=== PATIENT | female | born 1975 | race Caucasian/White ===

== ENCOUNTER → 2019-10-28 12:52 | Outpatient (BNVA) | payer MEDICAID, SELFPAY | PROVIDERS: Family Provider Family Medicine; PCP Family Medicine; Visit Provider Psychiatry & Neurology Psychiatry | DX: F43.12 Post-traumatic stress disorder, chronic (principal); F10.20 Alcohol dependence, uncomplicated; F17.200 Nicotine dependence, unspecified, uncomplicated; F33.2 Major depressive disorder, recurrent severe without psychotic features; F41.1 Generalized anxiety disorder | CPT/HCPCS: 99214 ==

== ENCOUNTER → 2019-11-27 12:06 | Outpatient (BNVA) | payer MEDICAID, SELFPAY | PROVIDERS: Family Provider Family Medicine; PCP Family Medicine; Visit Provider Psychiatry & Neurology Psychiatry | DX: F11.99 Opioid use, unspecified with unspecified opioid-induced disorder (principal) | CPT/HCPCS: 80305; 99214 ==

== ENCOUNTER → 2019-11-28 09:45 | Outpatient (BNVA) | payer MEDICAID, SELFPAY | PROVIDERS: Family Provider Family Medicine; PCP Family Medicine; Visit Provider Psychiatry & Neurology Psychiatry | DX: F43.12 Post-traumatic stress disorder, chronic (principal); F10.20 Alcohol dependence, uncomplicated; F17.200 Nicotine dependence, unspecified, uncomplicated; D33.2 Benign neoplasm of brain, unspecified; F41.1 Generalized anxiety disorder | CPT/HCPCS: 99213 ==

== ENCOUNTER → 2019-12-03 11:39 | Outpatient (BNVA) | payer MEDICAID, SELFPAY | PROVIDERS: Family Provider Family Medicine; PCP Family Medicine; Visit Provider Psychiatry & Neurology Psychiatry | DX: F11.20 Opioid dependence, uncomplicated (principal) | CPT/HCPCS: 80305; 99213 ==

== ENCOUNTER → 2019-12-16 10:47 | Outpatient (BNVA) | payer MEDICAID, SELFPAY | PROVIDERS: Family Provider Family Medicine; PCP Family Medicine; Visit Provider Psychiatry & Neurology Psychiatry | DX: F11.20 Opioid dependence, uncomplicated (principal) | CPT/HCPCS: 80307; 99213 ==

== ENCOUNTER → 2020-01-24 07:41 | Outpatient (BNVA) | payer MEDICAID, SELFPAY | PROVIDERS: Family Provider Family Medicine; PCP Family Medicine; Visit Provider Psychiatry & Neurology Psychiatry | DX: F33.2 Major depressive disorder, recurrent severe without psychotic features (principal); F41.1 Generalized anxiety disorder; F43.12 Post-traumatic stress disorder, chronic; F17.200 Nicotine dependence, unspecified, uncomplicated; F10.21 Alcohol dependence, in remission; F11.20 Opioid dependence, uncomplicated | CPT/HCPCS: 99213 ==

== ENCOUNTER → 2020-02-21 07:47 | Outpatient (BNVA) | payer MEDICAID, SELFPAY | PROVIDERS: Family Provider Family Medicine; PCP Family Medicine; Visit Provider Psychiatry & Neurology Psychiatry | DX: F43.12 Post-traumatic stress disorder, chronic (principal); F41.1 Generalized anxiety disorder; F10.21 Alcohol dependence, in remission; F17.200 Nicotine dependence, unspecified, uncomplicated; F33.2 Major depressive disorder, recurrent severe without psychotic features; F11.20 Opioid dependence, uncomplicated | CPT/HCPCS: 99213 ==

== ENCOUNTER → 2020-04-08 07:52 | Outpatient (BNVA) | payer MEDICAID, SELFPAY | PROVIDERS: Family Provider Family Medicine; PCP Family Medicine; Visit Provider Psychiatry & Neurology Psychiatry | DX: F10.21 Alcohol dependence, in remission (principal); F33.2 Major depressive disorder, recurrent severe without psychotic features; F41.1 Generalized anxiety disorder; F43.12 Post-traumatic stress disorder, chronic; F11.20 Opioid dependence, uncomplicated; F17.200 Nicotine dependence, unspecified, uncomplicated | CPT/HCPCS: 99214 ==

== ENCOUNTER → 2020-05-25 08:21 | Outpatient (BNVA) | payer MEDICAID, SELFPAY | PROVIDERS: Family Provider Family Medicine; PCP Family Medicine; Visit Provider Psychiatry & Neurology Psychiatry | DX: F33.2 Major depressive disorder, recurrent severe without psychotic features (principal); F41.1 Generalized anxiety disorder; F43.12 Post-traumatic stress disorder, chronic; F17.200 Nicotine dependence, unspecified, uncomplicated; F10.21 Alcohol dependence, in remission; F11.20 Opioid dependence, uncomplicated | CPT/HCPCS: 99213 ==

== ENCOUNTER → 2020-07-03 07:56 | Outpatient (BNVA) | payer MEDICAID, SELFPAY | PROVIDERS: Family Provider Family Medicine; PCP Family Medicine; Visit Provider Psychiatry & Neurology Psychiatry | DX: F43.12 Post-traumatic stress disorder, chronic (principal); F41.1 Generalized anxiety disorder; F33.2 Major depressive disorder, recurrent severe without psychotic features; F10.21 Alcohol dependence, in remission; F17.200 Nicotine dependence, unspecified, uncomplicated; F11.20 Opioid dependence, uncomplicated | CPT/HCPCS: 99214 ==

== ENCOUNTER → 2020-07-06 15:46 | Outpatient (BNVA) | payer MEDICAID, SELFPAY | PROVIDERS: Family Provider Family Medicine; PCP Family Medicine; Visit Provider Psychiatry & Neurology Psychiatry | DX: F11.20 Opioid dependence, uncomplicated (principal) | CPT/HCPCS: 80306 ==

== ENCOUNTER → 2020-08-21 07:38 | Outpatient (BNVA) | payer MEDICAID, SELFPAY | PROVIDERS: Family Provider Family Medicine; PCP Family Medicine; Visit Provider Psychiatry & Neurology Psychiatry | DX: F41.1 Generalized anxiety disorder (principal); F33.2 Major depressive disorder, recurrent severe without psychotic features; F11.20 Opioid dependence, uncomplicated; F17.200 Nicotine dependence, unspecified, uncomplicated; F10.21 Alcohol dependence, in remission; F43.12 Post-traumatic stress disorder, chronic | CPT/HCPCS: 99213 ==

== ENCOUNTER → 2020-10-19 08:10 | Outpatient (BNVA) | payer MEDICAID, SELFPAY | PROVIDERS: Family Provider Family Medicine; PCP Family Medicine; Visit Provider Psychiatry & Neurology Psychiatry | DX: F33.2 Major depressive disorder, recurrent severe without psychotic features (principal); F41.1 Generalized anxiety disorder; F11.20 Opioid dependence, uncomplicated; F17.200 Nicotine dependence, unspecified, uncomplicated; F10.21 Alcohol dependence, in remission; F43.12 Post-traumatic stress disorder, chronic | CPT/HCPCS: 99213 ==

== ENCOUNTER → 2020-11-06 14:38 | Outpatient (BNVA) | payer MEDICAID, SELFPAY | PROVIDERS: Family Provider Family Medicine; PCP Family Medicine; Visit Provider Psychiatry & Neurology Psychiatry | DX: F11.20 Opioid dependence, uncomplicated (principal) | CPT/HCPCS: 80053; 80061; 80307; 83036; 84443; 85025 ==

== ENCOUNTER → 2021-01-01 07:50 | Outpatient (BNVA) | payer MEDICAID, SELFPAY | PROVIDERS: Family Provider Family Medicine; PCP Family Medicine; Visit Provider Psychiatry & Neurology Psychiatry | DX: F33.2 Major depressive disorder, recurrent severe without psychotic features (principal); F41.1 Generalized anxiety disorder; F43.12 Post-traumatic stress disorder, chronic; F10.21 Alcohol dependence, in remission; F17.200 Nicotine dependence, unspecified, uncomplicated; F11.20 Opioid dependence, uncomplicated | CPT/HCPCS: 99214 ==

== ENCOUNTER → 2021-05-04 09:22 | Outpatient (BNVA) | payer MEDICAID, SELFPAY | PROVIDERS: Family Provider Family Medicine; PCP Family Medicine; Visit Provider Psychiatry & Neurology Psychiatry | DX: F33.2 Major depressive disorder, recurrent severe without psychotic features (principal); F41.1 Generalized anxiety disorder; F43.12 Post-traumatic stress disorder, chronic; F17.200 Nicotine dependence, unspecified, uncomplicated; F10.21 Alcohol dependence, in remission; F11.20 Opioid dependence, uncomplicated | CPT/HCPCS: 99214 ==

== ENCOUNTER → 2021-06-24 12:32 | Outpatient (BNVA) | payer MEDICAID, SELFPAY | PROVIDERS: Family Provider Family Medicine; PCP Family Medicine; Visit Provider Nurse Practitioner Family | DX: Z20.822 Contact with and (suspected) exposure to COVID-19 (principal) | CPT/HCPCS: 87635 ==

== ENCOUNTER → 2021-07-28 09:50 | Outpatient (BNVA) | payer MEDICAID, SELFPAY | PROVIDERS: Family Provider Family Medicine; PCP Family Medicine; Visit Provider Psychiatry & Neurology Psychiatry | DX: F33.2 Major depressive disorder, recurrent severe without psychotic features (principal); F41.1 Generalized anxiety disorder; F43.12 Post-traumatic stress disorder, chronic; F17.210 Nicotine dependence, cigarettes, uncomplicated; F10.21 Alcohol dependence, in remission; F11.20 Opioid dependence, uncomplicated | CPT/HCPCS: 99214 ==

== ENCOUNTER → 2021-11-18 12:47 | Outpatient (BNVA) | payer MEDICAID, SELFPAY | PROVIDERS: Family Provider Family Medicine; PCP Family Medicine; Visit Provider Psychiatry & Neurology Psychiatry | DX: F33.2 Major depressive disorder, recurrent severe without psychotic features (principal); F17.200 Nicotine dependence, unspecified, uncomplicated; F10.21 Alcohol dependence, in remission; F41.1 Generalized anxiety disorder; F43.12 Post-traumatic stress disorder, chronic; F11.20 Opioid dependence, uncomplicated | CPT/HCPCS: 99214 ==

== ENCOUNTER → 2022-02-09 12:50 | Outpatient (BNVA) | payer MEDICAID, SELFPAY | PROVIDERS: Family Provider Family Medicine; PCP Family Medicine; Visit Provider Psychiatry & Neurology Psychiatry | DX: F33.2 Major depressive disorder, recurrent severe without psychotic features (principal); F41.1 Generalized anxiety disorder; F17.200 Nicotine dependence, unspecified, uncomplicated; F10.21 Alcohol dependence, in remission; F11.20 Opioid dependence, uncomplicated; F43.12 Post-traumatic stress disorder, chronic | CPT/HCPCS: 99213 ==

== ENCOUNTER 2022-02-15 22:40 | Emergency (ER) | payer MEDICAID, OTHER, SELFPAY ==
[2022-02-15 22:43] VITALS: BP 125/81; PULSE 132; RESP 24; TEMP 36.4; O2SAT 99
--- NOTE | 2022-02-15 23:29 | CTR_ITS ---
PROCEDURE INFORMATION: Exam: CT Head Without Contrast Exam date and time: 02/15/2022 11:43 PM Age: 46 years old Clinical indication: Injury or trauma and condition or disease; Fall; Concussion/head injury; Convulsions or seizures; Patient HX: PT fell then had grand mal seizure TECHNIQUE: Imaging protocol: Computed tomography of the head without contrast. Radiation optimization: All CT scans at this facility use at least one of these dose optimization techniques: automated exposure control; mA and/or kV adjustment per patient size (includes targeted exams where dose is matched to clinical indication); or iterative reconstruction. COMPARISON: No relevant prior studies available. RADIATION DOSE METRICS: Total DLP (mGy-cm): 1966.96 FINDINGS: Brain: Normal. No hemorrhage. Unremarkable white matter. No mass effect. Cerebral ventricles: No ventriculomegaly. Paranasal sinuses: Visualized sinuses are unremarkable. No fluid levels. Mastoid air cells: Visualized mastoid air cells are well aerated. Bones/joints: Unremarkable. No acute fracture. Soft tissues: There is a laceration of the frontal scalp and facial soft tissues. CT/CT head wo con* [id number] IMPRESSION: Facial lacerations. No acute intracranial injury.
--- NOTE | 2022-02-15 23:29 | CTR_ITS ---
PROCEDURE INFORMATION: Exam: CT Cervical Spine Without Contrast Exam date and time: 02/15/2022 11:54 PM Age: 46 years old Clinical indication: Injury or trauma; Fall; Blunt trauma TECHNIQUE: Imaging protocol: Computed tomography images of the cervical spine without contrast. Radiation optimization: All CT scans at this facility use at least one of these dose optimization techniques: automated exposure control; mA and/or kV adjustment per patient size (includes targeted exams where dose is matched to clinical indication); or iterative reconstruction. COMPARISON: CT head wo con* [id number] 02/15/2022 11:43 PM RADIATION DOSE METRICS: Total DLP (mGy-cm): 970.87 FINDINGS: Vertebrae: No acute fracture. Normal alignment. Soft tissues: Unremarkable. Lungs: Lung apices are normal. CT/CT cervical spin wo con* [id number] IMPRESSION: No acute findings.
--- NOTE | 2022-02-15 23:35 | ED_ITS ---
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 This happened roughly 30 minutes ago. I came to the room patient was shaking in her arms with a possible seizure no known seizure history Associated symptoms: Reports headache(s); Deny abdominal pain, fever(s) or nausea Review of Systems Const: Denies: fever(s), chills, body aches or change in appetite Eyes: Denies: blurry vision or eye discomfort ENMT: Denies: throat pain or dental pain Card: Reports: syncope Resp: Denies: dyspnea GI: Denies: abdominal pain, nausea, vomiting or diarrhea : Denies: dysuria Musc: Denies: neck pain or back pain Skin/Breast: Denies: rash Neuro: Reports: headache(s) and seizure-like activity Psych: Denies: depression Fred/Lymph: Denies: easy bruising All/Imm: Denies: urticaria PFSH ED PFSH: Medical History Psychiatric care Social History Smoking and tobacco status: current every day smoker e-cigarettes E-Cigarette Details: vaporizer device and with nicotine E-cig/vape details: 5 mg/two days. Quit status (tobacco): has tried quititng Number of times tried to quit tobacco: 6 Second hand smoke exposure: No Smoking risk assessment/counseling performed?: Yes Tobacco counseling given: counseling >3 minutes Female Reproductive History: Date of last menstrual period: 02/08/22 Physical Exam Const: EXAM LIMITATIONS: altered mental status HENMT: COMMON NORMALS: head/scalp not atraumatic (Laceration to forehead) HEAD & SCALP: not atraumatic (Laceration to forehead) Eye: COMMON NORMALS: Equal, round and reactive pupils present and EOMs intact bilaterally PUPIL: Yes Equal, round and reactive pupils present Neck/C-Spine: COMMON NORMALS: full ROM and supple Chest: COMMONS NORMALS: normal inspection of the chest and normal palpation of entire chest wall Resp: COMMON NORMALS: normal respiratory effort, No retractions, No use of accessory muscles and clear to auscultation bilaterally AUSCULTATION: clear to auscultation bilaterally Cardio: COMMON NORMALS: regular rate, regular rhythm and No murmurs present (Cardio) RATE: regular rate RHYTHM: regular rhythm GI: COMMON NORMALS: Normal to inspection, nondistended, normoactive bowel soun ds present, Soft to palpation, non-tender and no masses PALPATION: Yes Soft to palpation Extremity: COMMON NORMALS: normal to inspection and full ROM Neuro: OTHER: Altered at this time with some seizure-like activity but no loss of consciousness Psych: COMMON NORMALS: cooperative Skin: COMMON NORMALS: no rashes or lesions noted and no wounds GENERAL SKIN EXAM: no rashes or lesions noted Course Vital Signs: Vital signs: Vital Signs Temperature 97.6 F 02/15/22 22:43 Pulse Rate 119 H 02/16/22 01:14 Respiratory Rate 18 02/16/22 01:14 Blood Pressure 127/91 02/16/22 01:14 Pulse Oximetry 99 02/16/22 01:14 MDM - Syncope Medical Decision Making Dr. Adair had me perform the laceration closure on patient's forehead. Patient had a 1.5 cm linear laceration just above left eyebrow. Lidocaine 1% with epi was used as local and laceration site was irrigated extensively with normal sali ne. 3 sutures were used to close laceration. See procedure notes for details. I was not involved in any other care patient. Patient presents after a syncopal event along with a head injury had a possible seizure here her elevated white count is likely a stress reaction no signs of infection here heart rate is improved head CT is normal she feels improved here she is stable for discharge follow-up PCP and return if worsening she understands agrees to plan. Lab Data : 02/16/22 00:40 02/16/22 00:40 Radiology Impressions Cervical Spine CT 02/15/22 23:29 IMPRESSION: No acute findings. Head CT 02/15/22 23:29 IMPRESSION: Facial lacerations. No acute intracranial injury. Laboratory Results WBC 18.8 10^3/uL (4.0-10.0) H 02/16/22 00:40 RBC 4.52 10^6/uL (4.1-5.3) 02/16/22 00:40 Hgb 12.6 g/dL (11.5-15.3) 02/16/22 00:40 Hct 37.7 % (37.0-47.0) 02/16/22 00:40 MCV 83.4 fl (81-99) 02/16/22 00:40 MCH 27.9 pg (28.0-34.0) L 02/16/22 00:40 MCHC 33.4 g/dL (30.0-36.0) 02/16/22 00:40 RDW 14.0 % (12.1-15.1) 02/16/22 00:40 Plt Count 279 10^3/cmm (130-400) 02/16/22 00:40 MPV 10.2 fL (7.4-10.4) 02/16/22 00:40 Neut % (Auto) 87.2 % 02/16/22 00:40 Lymph % (Auto) 6.7 % 02/16/22 00:40 Leake % (Auto) 4.9 % 02/16/22 00:40 Eos % (Auto) 0.6 % 02/16/22 00:40 Baso % (Auto) 0.2 % 02/16/22 00:40 Neut # (Auto) 16.39 10^3/uL (1.8-7.7) H 02/16/22 00:40 Lymph # (Auto) 1.3 10^3/uL (0.8-4.8) 02/16/22 00:40 Leake # (Auto) 0.9 10^3/uL (0.2-0.9) 02/16/22 00:40 Eos # (Auto) 0.1 10^3/uL (0.0-0.8) 02/16/22 00:40 Baso # (Auto) 0.0 10^3/uL (0.0-0.1) 02/16/22 00:40 Nucleated RBC % (auto) 0 % 02/16/22 00:40 Nucleated RBCs # 0.0 /100WBC 02/16/22 00:40 Sodium 130 mmol/L (136-145) L 02/16/22 00:40 Potassium 3.0 mmol/L (3.5-5.1) L 02/16/22 00:40 Chloride 93 mmol/L (98-107) L 02/16/22 00:40 Carbon Dioxide 18 mmol/L (22-29) L 02/16/22 00:40 Anion Gap 22.0 (5-19) H 02/16/22 00:40 BUN 13 mg/dL (6-20) 02/16/22 00:40 Creatinine 0.7 mg/dL (0.5-0.9) 02/16/22 00:40 GFR Calculation 90.9 mL/min (90-130) 02/16/22 00:40 Glucose 144 mg/dL (65-115) H 02/16/22 00:40 Calculated Osmolality 273 mOsm/kg (285-295) L 02/16/22 00:40 Calcium 9.5 mg/dL (8.5-10.5) 02/16/22 00:40 Total Bilirubin 0.3 mg/dL (0.15-1.2) 02/16/22 00:40 AST 24 U/L (0-32) 02/16/22 00:40 ALT 11 U/L (0-33) 02/16/22 00:40 Alkaline Phosphatase 61 IU/L (35-105) 02/16/22 00:40 Total Protein 7.7 g/dL (6.6-8.7) 02/16/22 00:40 Albumin 4.8 g/dL (3.5-5.2) 02/16/22 00:40 Globulin 2.9 g/dL (1.3-4.6) 02/16/22 00:40 Urine Opiates Screen Negative ng/mL (Negative) 02/16/22 00:46 Ur Barbiturates Screen Negative ng/mL (Negative) 02/16/22 00:46 Ur Phencyclidine Scrn Negative ng/mL (Negative) 02/16/22 00:46 Ur Amphetamines Screen Negative ng/mL (Negative) 02/16/22 00:46 U Benzodiazepines Scrn Negative ng/mL (Negative) 02/16/22 00:46 Urine Cocaine Screen Negative ng/mL (Negative) 02/16/22 00:46 U Marijuana (THC) Screen Negative ng/mL (Negative) 02/16/22 00:46 Ethyl Alcohol < 10 mg/dL (0-10) 02/16/22 00:40 Discharge Plan Discharge Patient Disposition: Home Clinical Impression: Syncope, Seizure, Laceration of head Condition: Stable Prescriptions: No Action celecoxib [Celebrex] 100 mg capsule 100 mg PO BID 0RF methadone 40 mg tablet,soluble 120 mg PO .AM 0RF tizanidine [Zanaflex] 4 mg capsule 4 mg PO Q8H PRN (Reason: muscle spasticity) 0RF nicotine (polacrilex) [Nicorette] 4 mg gum 4 mg buccal Q1H Qty: 110 2RF gabapentin 400 mg capsule 400 mg PO TID Qty: 90 2RF Rx Instructions: Total of 1200 mg three times daily. gabapentin 800 mg tablet 800 mg PO TID Qty: 90 2RF clomipramine 50 mg capsule 150 mg PO .HS Qty: 90 2RF propranolol 20 mg tablet 10 mg PO BID PRN (Reason: Anxiety/PAnic attack) Qty: 60 2RF Discharge Orders: Discharge ED (Routine); Ordered 02/16/22 Ordered By: Juwan Adair Referrals: Javier Alva [Primary Care Provider] - 1-3 days Discharge Diet: Advance as tolerated Discharge Activity: Resume usual activity Patient Instructions: Syncope (ED), Head Laceration (ED) Coding Level of Care Code ED Supervisor Tubing for Chg Fwd Exam Comprehensive Documented by User: DUANE Rothman 02/16/22 00:27 HPI - Syncope General: Chief Complaint: Syncope Stated Complaint: fell and split head Time Seen by Provider: 02/15/22 23:27 PENDING SALE TO [facility] ED PFSH: Medical History Psychiatric care Social History Smoking and tobacco status: current every day smoker e-cigarettes E-Cigarette Details: vaporizer device and with nicotine E-cig/vape details: 5 mg/two days. Quit status (tobacco): has tried quititng Number of times tried to quit tobacco: 6 Second hand smoke exposure: No Smoking risk assessment/counseling performed?: Yes Tobacco counseling given: counseling >3 minutes Physical Exam HENMT: OTHER: Patient has a 1.5 cm linear laceration to left forehead just superior to left eyebrow. No active bleeding or foreign body seen. Procedures Laceration Laceration 1: Site: face (above Left eyebrow) Side (If applicable): left Size (cm): 1.5 Description: linear Depth: simple, single layer Local Anesthetic: lidocaine 1% and with epi Amount of anesthesia used (mL): 3 Pre-repair: irrigated extensively (Extensively with normal saline) Skin layer closed with: nylon Size (cm): 6-0 Number of sutures: 3 Technique: simple, interrupted Course Vital Signs: Vital signs: Vital Signs Temperature 97.6 F 02/15/22 22:43 Pulse Rate 119 H 02/16/22 01:14 Respiratory Rate 18 02/16/22 01:14 Blood Pressure 127/91 02/16/22 01:14 Pulse Oximetry 99 02/16/22 01:14 MDM - Syncope Medical Decision Making Dr. Adair had me perform the laceration closure on patient's forehead. Patient had a 1.5 cm linear laceration just above left eyebrow. Lidocaine 1% with epi was used as local and laceration site was irrigated extensively with normal saline. 3 sutures were used to close laceration. See procedure notes for zbigniew richardson I was not involved in any other care patient. Lab Data : 02/16/22 00:40 02/16/22 00:40 Radiology Impressions Cervical Spine CT 02/15/22 23:29 IMPRESSION: No acute findings. Head CT 02/15/22 23:29
[2022-02-15] MEDS: LORazepam 2 mg/mL INJ 1 mL IVP ×2 (23:46→23:47)
[2022-02-16 00:49] LABS: Basophils % 0.2 %; Eosinophils # 0.1 10^3/uL (0.0-0.8); Eosinophils % 0.6 %; Hematocrit 37.7 % (37.0-47.0); Hemoglobin 12.6 g/dL (11.5-15.3); Lymphocytes # 1.3 10^3/uL (0.8-4.8); Lymphocytes % 6.7 %; Mean Corpuscular HGB Conc 33.4 g/dL (30.0-36.0); Mean Corpuscular Hemoglobin 27.9 pg (28.0-34.0); Mean Corpuscular Volume 83.4 fl (81-99); Mean Platelet Volume 10.2 fL (7.4-10.4); Monocytes # 0.9 10^3/uL (0.2-0.9); Monocytes % 4.9 %; Neutrophils # 16.39 10^3/uL (1.8-7.7); Neutrophils % 87.2 %; Nucleated Red Blood Cells % 0 %; Platelet Count 279 10^3/cmm (130-400); Red Blood Count 4.52 10^6/uL (4.1-5.3); White Blood Count 18.8 10^3/uL (4.0-10.0)
[2022-02-16 00:57] VITALS: RESP 18
[2022-02-16] MEDS: morphine 4 mg/mL SDV 1 mL IVP (00:57)
[2022-02-16] MEDS: sodium chloride 0.9% 1,000 ML 999 ML IV (00:58)
[2022-02-16 01:14] VITALS: BP 127/91; PULSE 119; RESP 18; O2SAT 99
[2022-02-16 01:14] LABS: Alanine Aminotransferase 11 U/L (0-33); Albumin Level 4.8 g/dL (3.5-5.2); Alkaline Phosphatase 61 IU/L (35-105); Aspartate Amino Transferase 24 U/L (0-32); Blood Urea Nitrogen 13 mg/dL (6-20); Calcium 9.5 mg/dL (8.5-10.5); Carbon Dioxide 18 mmol/L (22-29); Chloride 93 mmol/L (98-107); Globulin 2.9 g/dL (1.3-4.6); Glomerular Filtration Rate 90.9 mL/min (90-130); Glucose 144 mg/dL (65-115); Osmolality Calculated 273 mOsm/kg (285-295); Sodium 130 mmol/L (136-145); Total Bilirubin 0.3 mg/dL (0.15-1.2); Total Protein 7.7 g/dL (6.6-8.7)
[2022-02-16 01:15] LABS: Alcohol Level < 10 mg/dL (0-10)
[2022-02-16 01:22] LABS: Slide Review Slide Review Perform
[2022-02-16 01:27] LABS: Amphetamines Screen Urine Negative (Negative); Barbiturates Screen Urine Negative (Negative); Benzodiazepines Screen Urine Negative (Negative); Cocaine Screen Urine Negative (Negative); Opiate Screen Urine Negative (Negative); PCP Screen Urine Negative (Negative); THC Screen Urine Negative (Negative)
[2022-02-16 02:09] VITALS: BP 119/89; PULSE 107; RESP 18; O2SAT 98
== END 2022-02-16 01:45 | disposition home or self-care (01) ==
PROVIDERS: Emergency Provider Emergency Medicine; PCP Family Medicine
DX: S01.112A Laceration without foreign body of left eyelid and periocular area, initial encounter (principal); W18.30XA Fall on same level, unspecified, initial encounter; Y93.H3 Activity, building and construction; Y92.239 Unspecified place in hospital as the place of occurrence of the external cause; F17.290 Nicotine dependence, other tobacco product, uncomplicated
CPT/HCPCS: 12011; 70450; 72125; 80053; 80306; 80307; 85025; 96361; 96374; 96375; 96376; 99284; J2060; J2270; J7030

== ENCOUNTER 2022-02-16 06:34 | Emergency (ER) | payer MEDICAID, SELFPAY ==
[2022-02-16 06:38] VITALS: BP 163/106; PULSE 91; RESP 16; TEMP 37; O2SAT 99; BMI 30.2
--- NOTE | 2022-02-16 06:44 | ED_ITS ---
HPI - Neuro Symptoms/Deficit General: Chief Complaint: Neuro Symptoms/Deficit Stated Complaint: slurred speech/difficulty walking/weakness/falling Time Seen by Provider: 02/16/22 06:42 Source: patient Mode of arrival: ambulatory Limitations: no limitations History of Present Illness: 46-year-old female. Presents emergency room she had a fall last night was evaluated had a head CT she states she is had vision and speech changes since being discharged earlier. Her boyfriend is concerned that she has had a stroke. See her NIH score. She does have a little difficulty at times with word finding and she will stutter a bit. When I talked to her biggest concern is that she is due for her dose of methadone. She states she takes 40 mg 3 times a day. I asked her when her last dose was she said she was not sure initially and then states she thought she took some yesterday. She tells me that she is due for dose this morning and was advised to come here to get evaluated and receive a dose. She usually receives it from a local methadone clinic. She is otherwise awake and alert can recall the events of last night. Onset (ago): hour(s) Severity: mild Quality: weak Relieving factors: none Exacerbating factors: none Context: sudden onset and recent trauma Associated symptoms: Reports seizures (Concern of having had a seizure last night.); Deny chest pain, cough, diaphoresis, fevers/chills, headache(s), anorexia, malaise, nausea, short of breath, syncope, tingling, vertigo, vomiting or weakness Treatments Prior to Arrival: none Review of Systems Const: Denies: malaise or diaphoresis ENMT: Denies: throat pain, ear or mastoid pain, nasal discharge or nasal c ongestion Card: Denies: chest pain or syncope Resp: Denies: dyspnea, productive cough or non-productive cough GI: Denies: nausea or vomiting : Denies: flank pain, difficulty voiding, dysuria, urinary frequency or urinary urgency Skin/Breast: Denies: rash or pruritus Neuro: Denies: headache(s) or vertigo PFS ED PFSH: Medical History Psychiatric care Social History Smoking and tobacco status: current every day smoker e-cigarettes E-Cigarette Details: vaporizer device and with nicotine E-cig/vape details: 5 mg/two days. Quit status (tobacco): has tried quititng Number of times tried to quit tobacco: 6 Second hand smoke exposure: No Smoking risk assessment/counseling performed?: Yes Tobacco counseling given: counseling >3 minutes Female Reproductive History: Date of last menstrual period: 02/08/22 NIH stroke score NIHSS: Level Of Consciousness - 1a: 0 Level Of Consciousness Questions - 1b: Both Correct Level Of Consciousness Commands - 1c: Both Correct Best Gaze - 2: Normal Visual Coe - 3: No Visual Loss Facial Palsy - 4: Normal Motor Arm Right - 5: No Drift Motor Arm Left - 5: No Drift Motor Leg Right - 6: No Drift Motor Leg Left - 6: No Drift Limb Ataxia - 7: Absent Sensory - 8: Normal Best Language - 9: No Aphasia Dysarthia - 10: Mild/Moderate Dysarthia Extinction And Inattention - 11: 0 Score: Total Score: 1 Physical Exam Const: COMMON NORMALS: no acute distress GENERAL APPEARANCE: cooperative and comfortable ORIENTATION/CONSCIOUSNESS: Yes awake, Yes oriented to person, Yes oriented to place and Yes oriented to time HENMT: COMMON NORMALS: normocephalic, atraumatic and hearing grossly normal bilaterally HEAD & SCALP: normocephalic and atraumatic Neck/C-Spine: COMMON NORMALS: no JVD Resp: COMMON NORMALS: normal respiratory effort, No retractions, No use of accessory muscles and clear to auscultation bilaterally AUSCULTATION: clear to auscultation bilaterally Cardio: COMMON NORMALS: no JVD, regular rate, regular rhythm and No murmurs present (Cardio) RATE: regular rate RHYTHM: regular rhythm GI: COMMON NORMALS: Soft to palpation and No hepatosplenomegaly present AUSCULTATION: Yes normoactive bowel sounds PALPATION: Yes Soft to palpation, No Tenderness to palpation present (GI), No Guarding due to palpation present (GI) and Yes No hepatosplenomegaly present Extremity: COMMON NORMALS: normal to inspection, capillary refill normal, no clubbing, cyanosis or edema, no calf tenderness and no pedal edema Neuro: SENSORIUM/ORIENTATION: Yes oriented to person, Yes oriented to place and Yes oriented to time OTHER: [id number] normal gait normal Psych: COMMON NORMALS: Normal thought process present SPEECH: Yes rapid and Yes Other speech symptoms (Intermittently has difficulty with word finding and slight stutter) MOOD & AFFECT: Yes anxious THOUGHT PROCESS: Normal thought process present THOUGHT CONTENT: Yes Normal thought content present ATTENTION/CONCENTRATION: Yes attention grossly intact Skin: COMMON NORMALS: no rashes or lesions noted GENERAL SKIN EXAM: no rashes or lesions noted Course Vital Signs: Vital signs: Vital Signs Temperature 98.6 F 02/16/22 06:38 Pulse Rate 93 02/16/22 07:22 Respiratory Rate 16 02/16/22 06:38 Blood Pressure 157/111 02/16/22 07:22 Pulse Oximetry 100 02/16/22 07:22 MDM - Neuro Symptoms/Deficit Medical Decision Making NIH score of 1 if she is count is having. At times she is able to eat fluently with no difficulty word finding at other times that she has a stutter but is able to find her words. She otherwise has no other focal or lateralizing neurologic deficits. She does not seem postictal at this point. She has not had any other seizure-like activity since last night that was noted or reported. She is most concerned with her dose of methadone. There are some question as to whether or not she received any yesterday. I suspect this is why she is having her symptoms. She will need to get an outpatient EEG because of the question of a seizure last night. At this point I think most effective thing in addition to a dose of Ativan will be to have her go to the methadone clinic and get her refills and resume her regular prescribed dose return if she has problems. Medical Records I reviewed the patient's medical records. Lab Data I reviewed the patient's lab results. Discharge Plan Discharge Patient Disposition: Home Clinical Impression: Generalized anxiety disorder, Seizure, Opioid use disorder, moderate, dependence, Laceration of head Condition: Stable Prescriptions: New hydroxyzine HCl 25 mg tablet 25 mg PO Q6H PRN (Reason: anxiety) Qty: 10 0RF No Action celecoxib [Celebrex] 100 mg capsule 100 mg PO BID 0RF methadone 40 mg tablet,soluble 120 mg PO .AM 0RF tizanidine [Zanaflex] 4 mg capsule 4 mg PO Q8H PRN (Reason: muscle spasticity) 0RF nicotine (polacrilex) [Nicorette] 4 mg gum 4 mg buccal Q1H Qty: 110 2RF gabapentin 400 mg capsule 400 mg PO TID Qty: 90 2RF Rx Instructions: Total of 1200 mg three times daily. gabapentin 800 mg tablet 800 mg PO TID Qty: 90 2RF clomipramine 50 mg capsule 150 mg PO .HS Qty: 90 2RF propranolol 20 mg tablet 10 mg PO BID PRN (Reason: Anxiety/PAnic attack) Qty: 60 2RF Discharge Orders: Discharge ED (Routine); Ordered 02/16/22 Ordered By: Slick Uriostegui Referrals: Javier Alva [Primary Care Provider] - Discharge Diet: Usual diet Discharge Activity: Increase activity as tolerated Activity Restrictions/Additional Instructions: Recommend follow-up with the methadone clinic as soon as you are able. Case management will make arrangements for an outpatient EEG. 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
[2022-02-16] MEDS: LORazepam 2 mg Tablet PO (07:15)
[2022-02-16 07:22] VITALS: BP 157/111; PULSE 93; O2SAT 100
--- NOTE | 2022-02-23 18:33 | DCPLANNER ---
Addendum entered by Lupe Jane 05/12/22 11:16: Both appointments were cancelled Addendum entered by Lupe Jane 03/03/22 14:59: Patient has a follow up appointment scheduled for Tuesday, April 26, 2022 at 8:00 for an EEG. Patient has a follow up appointment scheduled for Monday, May 02, 2022 at 10:[address] Puentes. Clinic will call patient with both appointments. Original Note: manager sales had message to schedule an outpatient EEG sleep deprived for patient. manager sales faxed signed order to neurology. Clinic will call patient with appointment information. manager sales sent a message to the front office staff at neurology, asking clinic to verify that clinic received the order.
== END 2022-02-16 07:23 | disposition home or self-care (01) ==
PROVIDERS: Emergency Provider Family Medicine; PCP Family Medicine
DX: F41.1 Generalized anxiety disorder (principal); R56.9 Unspecified convulsions; F11.20 Opioid dependence, uncomplicated; F17.290 Nicotine dependence, other tobacco product, uncomplicated
CPT/HCPCS: 99283

== ENCOUNTER 2022-02-16 08:46 | Emergency (ER) | payer MEDICAID, SELFPAY ==
--- NOTE | 2022-02-16 08:50 | CT_ITS ---
WS: [id number] CT HEAD NONCONTRAST HISTORY: seizure/fall last night -initial CT neg TECHNIQUE: Contiguous axial imaging performed through the brain in 2.5 mm imaging. Bone and soft tiss ue windows. Sagittal and coronal reformats reviewed. All CT scans at [facility] use at least one of these dose optimization techniques: automated exposure control; mA and/or kV adjustment per pa tient size (includes targeted exams where dose is matched to clinical indication); or iterative recon struction. DLP: 1248.12 mGy.cm COMPARISON: 02/15/2022 Study compromised by motion and lack of patient cooperation. No acute intracranial hemorrhage, midline shift or mass effect. No atrophy or prior infarcts or herniation. Ventricles: Normal size with no hydrocephalus. Paranasal sinuses: As visualized are clear. Mastoid air cells: Well pneumatized. Calvarium and scalp: No skull fracture. Soft tissue edema and laceration with air centered over the L EFT frontal bone. CT/CT head wo con* [id number] IMPRESSION: 1. No acute intracranial hemorrhage or edema. Study quality is compromised by lack of cooperation and motion. 2. Laceration with air centered over the LEFT frontal bone was also present on the prior study of 02/15/2022.
--- NOTE | 2022-02-16 09:19 | W.ED.SEIZURE ---
HPI - Seizure General: Chief Complaint: Seizure Stated Complaint: SEIZURES/ POSTICTAL Time Seen by Provider: 02/16/22 08:46 Source: patient Mode of arrival: EMS History of Present Illness: HPI Narrative: 46-year-old female seen twice in the last approximately 12 hours. Patient came in last night after a fall there is a concern about a seizure she had a laceration on her forehead this was repaired she had a CT of her head done was negative. She returned earlier this morning just an hour or 2 before this visit she was extremely anxious but had a stroke score of at best 1. At times she would have difficulty with stuttering with words and word finding and other times she would do fine. Her is concerned she has stroke her NIH score was at best 1 she was extremely anxious. She related it to her needing methadone. She states she is due to get her prescription refilled today. She tells me she had taken her doses yesterday but was out and needed a dose this morning. She was discharged home after being given Ativan here and advised to follow-up with the methadone clinic this morning as scheduled to resume her regular dose. She returned via EMS after report of having a seizure at home. She is diaphoretic and her T shirt is soaked with sweat around the neck when she arrives here she appears to be postictal. She does follow simple commands. Her speech pattern is normal. complaint: seizure Onset (ago): minute(s) Description of Episode: tonic-clonic movement and post-event confusion Witnessed: Yes - by Bystander Trauma: Yes Place: Home Possible Precipitating Event: head injury Associated symptoms: Deny chest pain, chills, confusion, cough, diaphoresis, fever(s), anorexia, malaise, rash, short of breath, syncope or weakness Treatments prior to arrival: none Review of Systems Const: Denies: fever(s), chills, malaise or diaphoresis ENMT: Denies: throat pain, ear or mastoid pain, nasal discharge or nasal congestion Card: Denies: chest pain or syncope Resp: Denies: dyspnea, productive cough or non-productive cough GI: Denies: abdominal pain, nausea, vomiting, hematemesis, coffee ground emesis, diarrhea, constipation, bloating, hematochezia or melena : Denies: flank pain, difficulty voiding, dysuria, urinary frequency or urinary urgency Skin/Breast: Denies: rash or pruritus Neuro: Denies: confusion PFSH ED PFSH: Medical History Psychiatric care Social History Smoking and tobacco status: current every day smoker e-cigarettes E-Cigarette Details: vaporizer device and with nicotine E-cig/vape details: 5 mg/two days. Quit status (tobacco): has tried quititng Number of times tried to quit tobacco: 6 Second hand smoke exposure: No Smoking risk assessment/counseling performed?: Yes Tobacco counseling given: counseling >3 minutes Female Reproductive History: Date of last menstrual period: 02/08/22 Physical Exam Const: ORIENTATION/CONSCIOUSNESS: Yes awake and Yes confused HENMT: COMMON NORMALS: normocephalic, atraumatic and hearing grossly normal bilaterally HEAD & SCALP: normocephalic and atraumatic Neck/C-Spine: COMMON NORMALS: no JVD Resp: COMMON NORMALS: normal respiratory effort, No retractions, No use of accessory muscles and clear to auscultation bilaterally AUSCULTATION: clear to auscultation bilaterally Cardio: COMMON NORMALS: no JVD, regular rate, regular rhythm and No murmurs present (Cardio) RATE: regular rate RHYTHM: regular rhythm GI: COMMON NORMALS: Soft to palpation and No hepatosplenomegaly present AUSCULTATION: Yes normoactive bowel sounds PALPATION: Yes Soft to palpation, No Tenderness to palpation present (GI), No Guarding due to palpation present (GI) and Yes No hepatosplenomegaly present Extremity: COMMON NORMALS: normal to inspection, capillary refill normal, no clubbing, cyanosis or edema, no calf tenderness and no pedal edema Course Vital Signs: Vital signs: Vital Signs Temperature 98.4 F 02/16/22 13:05 Pulse Rate 98 02/16/22 13:05 Respiratory Rate 15 02/16/22 13:05 Blood Pressure 146/92 02/16/22 13:05 Pulse Oximetry 98 02/16/22 13:05 MDM - Seizure MDM Narrative Medical decision making narrative: Reviewed with Dr. Puentes we discussed admitting her. Dr. Puentes recommended going discharged home started on the Keppra we loaded with Keppra here. She is not having any further symptoms, her postictal phase has resolved. We will set her up for an outpatient EEG and follow-up with neurology return if has problems. Lab Data Result diagrams: 02/16/22 09:27 02/16/22 09:27 Labs: Radiology Impressions Head CT 02/16/22 08:50 IMPRESSION: 1. No acute intracranial hemorrhage or edema. Study quality is compromised by lack of cooperation and motion. 2. Laceration with air centered over the LEFT frontal bone was also present on the prior study of 02/15/2022. Laboratory Results WBC 14.9 10^3/uL (4.0-10.0) H 02/16/22: RBC 4.46 10^6/uL (4.1-5.3) 02/16/22 09: Hgb 12.4 g/dL (11.5-15.3) 02/16/22: Hct 36.2 % (37.0-47.0) L 02/16/22: MCV 81.2 fl (81-99) 02/16/22: MCH 27.8 pg (28.0-34.0) L 02/16/22: MCHC 34.3 g/dL (30.0-36.0) 02/16/22: RDW 14.0 % (12.1-15.1) 02/16/22: Plt Count 321 10^3/cmm (130-400) 02/16/22: MPV 9.8 fL (7.4-10.4) 02/16/22: Neut % (Auto) 85.1 % 02/16/22: Lymph % (Auto) 9.1 % 02/16/22: Lyman % (Auto) 5.4 % 02/16/22: Eos % (Auto) 0.0 % 02/16/22: Baso % (Auto) 0.1 % 02/16/22: Neut # (Auto) 12.66 10^3/uL (1.8-7.7) H 02/16/22: Lymph # (Auto) 1.4 10^3/uL (0.8-4.8) 02/16/22 09:27 Lyman # (Auto) 0.8 10^3/uL (0.2-0.9) 02/16/22 09: Eos # (Auto) 0.0 10^3/uL (0.0-0.8) 02/16/22 09: Baso # (Auto) 0.0 10^3/uL (0.0-0.1) 02/16/22 09: Nucleated RBC % (auto) 0 % 02/16/22: Nucleated RBCs # 0.0 /100WBC 02/16/22 09:27 Sodium 132 mmol/L (136-145) L 02/16/22 09: Potassium 3.3 mmol/L (3.5-5.1) L 02/16/22 09: Chloride 97 mmol/L (98-107) L 02/16/22 09: Carbon Dioxide 17 mmol/L (22-29) L 02/16/22 09: Anion Gap 21.3 (5-19) H 02/16/22 09: BUN 8 mg/dL (6-20) 02/16/22 09: Creatinine 0.6 mg/dL (0.5-0.9) 02/16/22 09: GFR Calculation 108.6 mL/min (90-130) 02/16/22: Glucose 129 mg/dL (65-115) H 02/16/22 09: Calculated Osmolality 274 mOsm/kg (285-295) L 02/16/22: Calcium 8.8 mg/dL (8.5-10.5) 02/16/22 09: Magnesium 1.8 mg/dL (1.7-2.3) 02/16/22 09: Total Bilirubin 0.6 mg/dL (0.15-1.2) 02/16/22 09: AST 51 U/L (0-32) H 02/16/22 09: ALT 15 U/L (0-33) 02/16/22 09: Alkaline Phosphatase 65 IU/L (35-105) 02/16/22 09: Creatine Kinase 2279 U/L (26-192) H* 02/16/22 09: Total Protein 7.6 g/dL (6.6-8.7) 02/16/22 09: Albumin 4.5 g/dL (3.5-5.2) 02/16/22 09: Globulin 3.1 g/dL (1.3-4.6) 02/16/22 09:27 Urine Color Yellow (Yellow) 02/16/22 10:20 Urine Appearance Clear (CLEAR) 02/16/22 10:20 Urine pH 8 (5-7) H 02/16/22 10:20 Ur Specific [place] 1.010 (1.005-1.030) 02/16/22 10:20 Urine Protein Neg (Negative) 02/16/22 10:20 Urine Glucose (UA) Norm (Normal) 02/16/22 10:20 Urine Ketones 2+ (Negative) H 02/16/22 10:20 Urine Blood 2+ (Negative) H 02/16/22 10:20 Urine Nitrate Negative (Negative) 02/16/22 10:20 Urine Bilirubin Neg (Negative) 02/16/22 10:20 Prot Sulfosalicylic Acd Negative (Negative) 02/16/22 10:20 Urine Urobilinogen Norm mg/dL (Negative) 02/16/22 10:20 Ur Leukocyte Esterase Negative (Negative) 02/16/22 10:20 Urine RBC 0-4 /hpf (0-2) H 02/16/22 10:20 Urine WBC 0-4 /hpf (0-5) H 02/16/22 10:20 Ur Squamous Epith Cells None /hpf (0-5) 02/16/22 10:20 Ur Transition Epith Cell None /hpf 02/16/22 10:20 Ur Renal Epithelial Cell N /hpf 02/16/22 10:20 Amorphous Sediment Not Reportable 02/16/22 10:20 Urine Bacteria None /hpf (NONE) 02/16/22 10:20 Urine Mucus N /hpf 02/16/22 10:20 Salicylates < 0.3 mg/dL (3-10) L 02/16/22 09:27 Urine Opiates Screen Positive ng/mL (Negative) H 02/16/22 10:20 Acetaminophen < 5.0 ug/mL (10-30) L 02/16/22 09:27 Ur Barbiturates Screen Negative ng/mL (Negative) 02/16/22 10:20 Ur Phencyclidine Scrn Negative ng/mL (Negative) 02/16/22 10:20 Ur Amphetamines Screen Negative ng/mL (Negative) 02/16/22 10:20 U Benzodiazepines Scrn Positive ng/mL (Negative) H 02/16/22 10:20 Urine Cocaine Screen Negative ng/mL (Negative) 02/16/22 10:20 U Marijuana (THC) Screen Negative ng/mL (Negative) 02/16/22 10:20 Discharge Plan Discharge Patient Disposition: Home Clinical Impression: Seizure, Methadone dependence Condition: Stable Prescriptions: New Keppra 750 mg tablet 750 mg PO BID Qty: 60 0RF No Action methadone 40 mg tablet,soluble 120 mg PO QAM 0RF celecoxib 200 mg capsule 200 mg PO QAM 0RF tizanidine 4 mg tablet 4 mg PO Q8H PRN (Reason: Muscle Spasm) 0RF propranolol 40 mg tablet 40 mg PO BID PRN (Reason: Anxiety) 0RF Nicorette 4 mg gum 4 mg buccal Q1H PRN (Reason: Smoking Cessation) 0RF clomipramine 50 mg capsule 150 mg PO BEDTIME 0RF Discharge Orders: Discharge ED (Routine); Ordered 02/16/22 Ordered By: Slick Uriostegui Referrals: Javier Alva [Primary Care Provider] - Discharge Diet: Usual diet Discharge Activity: Limit activity as instructed Patient Instructions: Opioid Safety Coding Level of Care Code ED 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
[2022-02-16 09:28] VITALS: BP 150/87; PULSE 101; TEMP 36.8; O2SAT 99; BMI 30.2
[2022-02-16 09:35] VITALS: BP 150/87; O2SAT 99
[2022-02-16 09:35] LABS: Basophils % 0.1 %; Hematocrit 36.2 % (37.0-47.0); Hemoglobin 12.4 g/dL (11.5-15.3); Lymphocytes # 1.4 10^3/uL (0.8-4.8); Lymphocytes % 9.1 %; Mean Corpuscular HGB Conc 34.3 g/dL (30.0-36.0); Mean Corpuscular Hemoglobin 27.8 pg (28.0-34.0); Mean Corpuscular Volume 81.2 fl (81-99); Mean Platelet Volume 9.8 fL (7.4-10.4); Monocytes # 0.8 10^3/uL (0.2-0.9); Monocytes % 5.4 %; Neutrophils # 12.66 10^3/uL (1.8-7.7); Neutrophils % 85.1 %; Nucleated Red Blood Cells % 0 %; Platelet Count 321 10^3/cmm (130-400); Red Blood Count 4.46 10^6/uL (4.1-5.3); White Blood Count 14.9 10^3/uL (4.0-10.0)
[2022-02-16 09:59] LABS: Alanine Aminotransferase 15 U/L (0-33); Albumin Level 4.5 g/dL (3.5-5.2); Alkaline Phosphatase 65 IU/L (35-105); Anion Gap 21.3 (5-19); Aspartate Amino Transferase 51 U/L (0-32); Blood Urea Nitrogen 8 mg/dL (6-20); Calcium 8.8 mg/dL (8.5-10.5); Carbon Dioxide 17 mmol/L (22-29); Chloride 97 mmol/L (98-107); Globulin 3.1 g/dL (1.3-4.6); Glomerular Filtration Rate 108.6 mL/min (90-130); Glucose 129 mg/dL (65-115); Magnesium 1.8 mg/dL (1.7-2.3); Osmolality Calculated 274 mOsm/kg (285-295); Potassium 3.3 mmol/L (3.5-5.1); Sodium 132 mmol/L (136-145); Total Bilirubin 0.6 mg/dL (0.15-1.2); Total Protein 7.6 g/dL (6.6-8.7)
[2022-02-16 10:01] LABS: Acetaminophen < 5.0 ug/mL (10-30); Salicylate < 0.3 mg/dL (3-10)
[2022-02-16 10:13] LABS: Creatine Phosphokinase 2279 U/L (26-192)
--- NOTE | 2022-02-16 10:15 | PC.NURSE ---
Critical lab Ck 2279. Physician notified. No new orders at this time.
[2022-02-16 10:35] VITALS: BP 116/96; O2SAT 98
[2022-02-16 11:04] LABS: Glucose Urine UA Norm (Normal); Protein Urine Neg (Negative); Urine Appearance Clear (CLEAR); Urine Color Yellow (Yellow); pH Urine 8 (5-7)
[2022-02-16 11:05] LABS: Add Urine Microscopic? YES; Bilirubin Urine Neg (Negative); Blood Urine 2+ (Negative); Ketones Urine 2+ (Negative); Leukocyte Esterase Urine Negative (Negative); Nitrate Urine Negative (Negative); Sulfosalicylic Acid Urine Negative (Negative); Urobilinogen Urine Norm (Negative)
[2022-02-16 11:09] LABS: Amphetamines Screen Urine Negative (Negative); Barbiturates Screen Urine Negative (Negative); Benzodiazepines Screen Urine Positive (Negative); Cocaine Screen Urine Negative (Negative); Opiate Screen Urine Positive (Negative); PCP Screen Urine Negative (Negative); THC Screen Urine Negative (Negative)
[2022-02-16 11:14] LABS: Mucus Urine N /hpf; RBC Urine 0-4 /hpf (0-2); Renal Epithelial Cells Urine N /hpf; WBC Urine 0-4 /hpf (0-5)
[2022-02-16 11:15] LABS: Add Urine Culture? No
--- NOTE | 2022-02-16 12:14 | P.HP_ITS ---
Providers/Chief Complaint Primary Care Provider: Javier Alva Chief Complaint: SEIZURES/ POSTICTAL History of Present Illness Rekha Mai is a 46 year old female Medications/Allergies Home Medications Medication Instructions Recorded Confirmed Last Taken Type methadone 40 mg soluble tablet 120 mg PO QAM tab 11/18/21 02/16/22 02/15/22 History gabapentin 400 mg capsule 400 mg PO TID #90 cap 02/09/22 02/16/22 Unknown Rx gabapentin 800 mg tablet 800 mg PO TID #90 tab 02/09/22 02/16/22 Unknown Rx celecoxib 200 mg capsule 200 mg PO QAM 02/16/22 02/16/22 Unknown History clomipramine 50 mg capsule 150 mg PO BEDTIME 02/16/22 02/16/22 Unknown History hydroxyzine HCl 25 mg tablet 25 mg PO Q6H PRN #10 tab 02/16/22 02/16/22 Unknown Rx nicotine (polacrilex) 4 mg gum 4 mg BUCCAL Q1H PRN 02/16/22 02/16/22 Unknown History (Nicorette) propranolol 40 mg tablet 40 mg PO BID PRN 02/16/22 02/16/22 Unknown History tizanidine 4 mg tablet 4 mg PO Q8H PRN 02/16/22 02/16/22 Unknown History Allergies Allergy/AdvReac Type Severity Reaction Status Date / Time haloperidol [From Haldol] Allergy Intermediate [place] Verified 02/16/22 10:15 mirtazapine [From Remeron] AdvReac Intermediate Sun Verified 02/16/22 10:15 sensitivity PFSH Acute PFSH: Medical History Psychiatric care Social History Smoking and tobacco status: current every day smoker e-cigarettes E-Cigarette Details: vaporizer device and with nicotine E-cig/vape details: 5 mg/two days. 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
[2022-02-16] MEDS: LORazepam 2 mg/mL INJ 1 mL IVP (12:59)
[2022-02-16 13:00] VITALS: BP 146/92; PULSE 98; RESP 15; TEMP 36.9; O2SAT 98
[2022-02-16 13:05] VITALS: BP 146/92; PULSE 98; RESP 15; TEMP 36.9; O2SAT 98
== END 2022-02-16 13:07 | disposition home or self-care (01) ==
PROVIDERS: Emergency Provider Family Medicine; PCP Family Medicine
DX: R56.9 Unspecified convulsions (principal); F11.20 Opioid dependence, uncomplicated
CPT/HCPCS: 70450; 80053; 80306; 80307; 81001; 82550; 83735; 85025; 96365; 96375; 99284; J1953; J2060